=== PATIENT | male | born 1975 | race Caucasian/White ===

== ENCOUNTER 2018-05-07 09:45 | Inpatient (IN) ==
--- NOTE | 2018-05-07 10:20 | ED ---
HPI General Chief Complaint: Psychiatric Symptoms Stated Complaint: Psych eval Time Seen by Provider: 05/07/18 17:10 Source: patient Mode of arrival: ambulatory Limitations: no limitations History of Present Illness HPI Narrative: Patient is a 42-year-old male here today with his father for a history of depression and anxiety. He denies any homicidal ideation, but did come out of the room and let nurse know that he does frequently have suicidal thoughts but does not have a plan. Denies any hallucinations or delusions. He takes paxil 40 mg po daily, which helps some, but his symptoms are not completely controlled. He does not work at this time. Denies any drug or etoh use. MD complaint: Reports suicidal ideation, feels depressed and other (anxiety) Onset (ago): month(s) Duration: intermittent History of same: Yes Relieving factors: medication (Some relief of symptoms) Exacerbating factors: none Context: Denies recent alcohol abuse, recent drug abuse, not taking psychiatric medications and significant life stressor Associated psychiatric symptoms: Reports depression; Denies homicidal ideation, visual hallucinations and delusions Associated symptoms: Reports denies other symptoms Treatments prior to arrival: Reports none If self harm: admits thoughts of self harm Related Data Home Medications Medication Instructions Recorded Confirmed fluoxetine [Prozac] 40 mg PO DAILY 05/07/18 05/07/18 Allergies Allergy/AdvReac Type Severity Reaction Status Date / Time No Known Allergies Allergy Verified 05/07/18 09:50 Review of Systems ROS: all other systems reviewed are negative [facility]LY [facility] Medical History Medical History Depression (Acute) Surgical History Surgical History No history of previous surgery (Acute) Social History Social History Substance History: Past History Second Hand Smoke Exposure: No Smoking Status: Current every day smoker Tobacco Type: Cigarettes How Often Do You Have a Drink Containing Alcohol: 4 or more times a week (10- 12 beers and a bottle of wine daily for the past 7-9 months but excessive drinking since teenage years by patients own admission) Hx Recent Travel: No Recent Travel in [facility] within the Last 8 Weeks: No Recent Out of Country Travel within the Last 8 Weeks: No Immunization History Tetanus Immunization: Unsure Exam Narrative Exam Narrative: GENERAL: Pt awake, alert, oriented, calm, cooperative. SKIN: Focused skin assessment warm/dry. HEAD: Atraumatic. Normocephalic. EYES: Pupils equal and round. No scleral icterus. No injection or drainage. ENT: No nasal bleeding or discharge. Mucous membranes pink and moist. NECK: Trachea midline. No JVD. CARDIOVASCULAR: Regular rate and rhythm. No murmur appreciated. RESPIRATORY: No accessory muscle use. Clear to auscultation. Breath sounds equal bilaterally. GASTROINTESTINAL: Abdomen soft, non-tender, nondistended. Hepatic and splenic margins not palpable. MUSCULOSKELETAL: No obvious deformities. No clubbing. No cyanosis. No edema. NEUROLOGICAL: Awake and alert. No obvious cranial nerve deficits. Motor grossly within normal limits. Normal speech. PSYCHIATRIC: Appropriate mood and affect; insight and judgment normal. Course Initial Documented Vital Signs Temperature 98.3 F 05/07/18 09:48 Pulse Rate 83 05/07/18 09:48 Respiratory Rate 14 05/07/18 09:48 Blood Pressure 143/85 H 05/07/18 09:48 Pulse Oximetry 96 05/07/18 09:48 Last Documented Vital Signs Temperature 97.6 F 05/09/18 06:01 Pulse Rate 75 05/09/18 06:01 Respiratory Rate 16 05/09/18 06:01 Blood Pressure 110/72 05/09/18 06:01 Pulse Oximetry 99 05/09/18 06:01 Medical Decision Making MDM Narrative Medical decision making narrative: Pt here with his father for depression, anxiety, and intermittent suicidal thoughts. He's awake, alert, oriented, and appropriate at this yousuf. Psych screening lab work ordered. Mild decrease in GFR and ALT.urine positive for cannabis use. He is medically cleared for psych evaluation. At approximately 130 patient was made aware that he is going to be discharged home he became very upset and began running around the emergency department. He was subsequently moved to the [facility]. [facility] for psychiatry, is going to attempt to get him admitted to [facility] for evaluation. Medical Screen Exam Complete: Yes Emergency Medical Condition: Yes Differential Diagnosis Differential Diagnosis: Depression, Anxiety, bipolar, suicidal, homicidal Lab Data Lab results reviewed: Yes I reviewed the patient's lab results. Result diagrams: 05/07/18 10:22 05/08/18 14:20 Lab Results 05/07/18 05/07/18 05/07/18 Range/Units 10:22 10:22 10:28 WBC 6.9 (4.0-11.0) th/mm3 RBC 4.91 (4.50-5.90) mil/mm3 Hgb 15.2 (13.0-17.0) gm/dL Hct 45.2 (39.0-51.0) % MCV 92.2 (80.0-100.0) fL MCH 31.0 (27.0-34.0) pg MCHC 33.6 (32.0-36.0) % RDW 12.8 (11.6-17.2) % Plt Count 259 (150-450) th/mm3 MPV 8.1 (7.0-11.0) fL Neut % (Auto) 73.0 H (16.0-70.0) % Lymph % (Auto) 17.9 (9.0-44.0) % Stevens % (Auto) 7.2 (0.0-8.0) % Eos % (Auto) 1.4 (0.0-4.0) % Baso % (Auto) 0.5 (0.0-2.0) % Neut # (Auto) 5.1 (1.8-7.7) th/mm3 Lymph # (Auto) 1.2 (1.0-4.8) th/mm3 Stevens # (Auto) 0.5 (0.0-0.9) th/mm3 Eos # (Auto) 0.1 (0.0-0.4) th/mm3 Baso # (Auto) 0.0 (0.0-0.2) th/mm3 WBC Differential . Differential Comment Auto diff final Sodium 139 (136-145) meq/L Potassium 3.8 (3.5-5.1) meq/L Chloride 107 (98-107) meq/L Carbon Dioxide 23.7 (21.0-32.0) meq/L Anion Gap 8 (5-15) meq/L BUN 14 (7-18) mg/dL Creatinine 0.98 (0.60-1.30) mg/dL Estimated GFR 84 L (>89) mL/min Random Glucose 103 (74-106) mg/dL Hemoglobin A1c (4.3-6.0) % Calcium 9.4 (8.5-10.1) mg/dL Total Bilirubin 0.3 (0.2-1.0) mg/dL AST 14 L (15-37) U/L ALT 39 (12-78) U/L Alkaline Phosphatase 54 (45-117) U/L Total Protein 7.4 (6.4-8.2) g/dL Albumin 4.1 (3.4-5.0) g/dL Triglycerides (42-150) mg/dL Cholesterol (120-200) mg/dL LDL Cholesterol, Calc (0-99) mg/dL HDL Cholesterol (40.0-60.0) mg/dL Cholesterol/HDL Ratio Ratio TSH 0.917 (0.358-3.740) uIU/mL Urine Color (Yellw/Straw) Urine Clarity (Clear) Urine pH (5.0-8.5) Ur Specific [place] (1.002-1.035) Urine Protein (Neg-Trace) mg/dL Urine Glucose (UA) (Negative) mg/dL Urine Ketones (Negative) mg/dL Urine Occult Blood (Negative) Urine Nitrate (Negative) Urine Bilirubin (Negative) Urine Urobilinogen (Less than 2) mg/dL Ur Leukocyte Esterase (Negative) Urine RBC (0-3) /hpf Ur Squamous Epith Cells (0-5) /hpf Urine Bacteria (None) /hpf Hyaline Casts (0-3) /lpf Urine Mucus (Occasional) /lpf Micro UA Comment Ur Microscopic Review Urine Culture Comments Urine Opiates Screen Neg (Neg) Ur Barbiturates Screen Neg (Neg) Ur Amphetamines Screen Neg (Neg) U Benzodiazepines Scrn Neg (Neg) Urine Cocaine Screen Neg (Neg) U Cannabinoids Screen Pos H (Neg) Serum Alcohol Less than 3 (0-5) mg/dL 05/07/18 05/08/18 05/08/18 Range/Units 10:28 14:20 14:20 WBC (4.0-11.0) th/mm3 RBC (4.50-5.90) mil/mm3 Hgb (13.0-17.0) gm/dL Hct (39.0-51.0) % MCV (80.0-100.0) fL MCH (27.0-34.0) pg MCHC (32.0-36.0) % RDW (11.6-17.2) % Plt Count (150-450) th/mm3 MPV (7.0-11.0) fL Neut % (Auto) (16.0-70.0) % Lymph % (Auto) (9.0-44.0) % Stevens % (Auto) (0.0-8.0) % Eos % (Auto) (0.0-4.0) % Baso % (Auto) (0.0-2.0) % Neut # (Auto) (1.8-7.7) th/mm3 Lymph # (Auto) (1.0-4.8) th/mm3 Stevens # (Auto) (0.0-0.9) th/mm3 Eos # (Auto) (0.0-0.4) th/mm3 Baso # (Auto) (0.0-0.2) th/mm3 WBC Differential Differential Comment Sodium 141 (136-145) meq/L Potassium 3.4 L (3.5-5.1) meq/L Chloride 105 (98-107) meq/L Carbon Dioxide 29.6 (21.0-32.0) meq/L Anion Gap 6 (5-15) meq/L BUN 13 (7-18) mg/dL Creatinine 0.98 (0.60-1.30) mg/dL Estimated GFR 84 L (>89) mL/min Random Glucose 105 (74-106) mg/dL Hemoglobin A1c 5.2 (4.3-6.0) % Calcium 9.2 (8.5-10.1) mg/dL Total Bilirubin (0.2-1.0) mg/dL AST (15-37) U/L ALT (12-78) U/L Alkaline Phosphatase (45-117) U/L Total Protein (6.4-8.2) g/dL Albumin (3.4-5.0) g/dL Triglycerides 437 H (42-150) mg/dL Cholesterol 229 H (120-200) mg/dL LDL Cholesterol, Calc (0-99) mg/dL HDL Cholesterol 41.7 (40.0-60.0) mg/dL Cholesterol/HDL Ratio 5.49 Ratio TSH (0.358-3.740) uIU/mL Urine Color Yellow (Yellw/Straw) Urine Clarity Clear (Clear) Urine pH 6.0 (5.0-8.5) Ur Specific [place] 1.006 (1.002-1.035) Urine Protein Negative (Neg-Trace) mg/dL Urine Glucose (UA) Negative (Negative) mg/dL Urine Ketones Negative (Negative) mg/dL Urine Occult Blood Negative (Negative) Urine Nitrate Negative (Negative) Urine Bilirubin Negative (Negative) Urine Urobilinogen Less than 2 (Less than 2) mg/dL Ur Leukocyte Esterase Negative (Negative) Urine RBC Less than 1 (0-3) /hpf Ur Squamous Epith Cells <1 (0-5) /hpf Urine Bacteria Rare H (None) /hpf Hyaline Casts 1 (0-3) /lpf Urine Mucus Moderate H (Occasional) /lpf Micro UA Comment Culture not ind Ur Microscopic Review Not Reportable Urine Culture Comments Culture not ind Urine Opiates Screen (Neg) Ur Barbiturates Screen (Neg) Ur Amphetamines Screen (Neg) U Benzodiazepines Scrn (Neg) Urine Cocaine Screen (Neg) U Cannabinoids Screen (Neg) Serum Alcohol (0-5) mg/dL Discharge Plan Discharge Disposition Patient Disposition: 70 Transfer To Other Facility Discharge Condition Condition: Stable Discharge Order Discharge Orders: Discharge Order (Routine); Ordered 05/09/18 Ordered By: Hermila Toledo Physicians Team ED Provider: Jeremiah Robbins ED Midlevel Provider: Hermila Toledo Primary Care Provider: Primary Care Maura Mendes Attending Provider: Tony Fernandez Discharge Interventions Interventions: ED Discharge Assessment Last Done: 05/08/18 10:29 Status ED Status: Left Department Discharge Information Discharge Date/Time: 05/08/18 11:00
[2018-05-07 10:30] LABS: Baso % (Auto) 0.5 % (0.0-2.0); Eos # (Auto) 0.1 th/mm3 (0.0-0.4); Eos % (Auto) 1.4 % (0.0-4.0); Hematocrit 45.2 % (39.0-51.0); Hemoglobin 15.2 gm/dL (13.0-17.0); Lymph # (Auto) 1.2 th/mm3 (1.0-4.8); Lymph % (Auto) 17.9 % (9.0-44.0); Mean Corpuscular HGB Conc 33.6 % (32.0-36.0); Mean Corpuscular Volume 92.2 fL (80.0-100.0); Mean Platelet Volume 8.1 fL (7.0-11.0); Mono # (Auto) 0.5 th/mm3 (0.0-0.9); Mono % (Auto) 7.2 % (0.0-8.0); Neut # (Auto) 5.1 th/mm3 (1.8-7.7); Platelet Count 259 th/mm3 (150-450); Red Blood Count 4.91 mil/mm3 (4.50-5.90); Red Cell Distribution Width 12.8 % (11.6-17.2); White Blood Count 6.9 th/mm3 (4.0-11.0)
[2018-05-07 10:47] LABS: Albumin 4.1 g/dL (3.4-5.0); Anion Gap 8 meq/L (5-15); Aspartate Aminotransferase 14 U/L (15-37); Blood Urea Nitrogen 14 mg/dL (7-18); Calcium 9.4 mg/dL (8.5-10.1); Carbon Dioxide 23.7 meq/L (21.0-32.0); Chloride 107 meq/L (98-107); Glomerular Filtration Rate 84 mL/min (>89); Glucose,Random 103 mg/dL (74-106); Potassium 3.8 meq/L (3.5-5.1); Sodium 139 meq/L (136-145)
[2018-05-07 10:49] LABS: Alanine Aminotransferase 39 U/L (12-78)
[2018-05-07 10:56] LABS: Bacteria,Urine Rare /hpf; Bilirubin,Urine Negative (Negative); Clarity,Urine Clear (Clear); Color,Urine Yellow (Yellw/Straw); Glucose,Urine (UA) Negative (Negative); Hyaline Casts,Urine 1 /lpf (0-3); Leukocyte Esterase,Urine Negative (Negative); Mucus,Urine Moderate /lpf (Occasional); Nitrite,Urine Negative (Negative); Specific Gravity,Urine 1.006 (1.002-1.035); Squamous Epithelial Cell,Urine <1 /hpf (0-5)
[2018-05-07 10:58] LABS: Alkaline Phosphatase 54 U/L (45-117); Thyroid Stimulating Hormone 0.917 uIU/mL (0.358-3.740); Total Protein 7.4 g/dL (6.4-8.2)
[2018-05-07 11:04] LABS: Amphetamine Screen,Urine Neg (Neg); Barbiturate Screen,Urine Neg (Neg); Cannabinoid Screen,Urine Pos (Neg); Cocaine Screen,Urine Neg (Neg)
[2018-05-07 11:08] LABS: Opiate Screen,Urine Neg (Neg)
--- NOTE | 2018-05-07 19:40 | ED ---
HPI - Psych - General Source: patient, family Mode of arrival: ambulatory Limitations: no limitations - History of Present Illness MD complaint: suicidal ideation, feels depressed Onset (ago): day(s) Duration: intermittent History of same: Yes Relieving factors: none, medication (Some relief of symptoms) Exacerbating factors: none Context: significant life stressor Associated psychiatric symptoms: depression Associated symptoms: denies other symptoms Treatments prior to arrival: none - General Chief Complaint: Psychiatric Symptoms Stated Complaint: Psych eval Time Seen by Provider: 05/07/18 17:10 - History of Present Illness HPI Narrative: History of Present Illness HPI Narrative: Patient is a 42-year-old, single, unemployed male, with reported history of depression and anxiety, here today with his father on a voluntary status with chief complaint of depression and suicidal ideation. The patient denied any homicidal ideation at her but it is reported he did come out of the room and let the nurse noted that he does have frequent suicidal thoughts with no plan. EMR reviewed. No previous contact with [facility] psychiatry. Patient is seen. He is resting comfortably. He is alert and oriented. Speech is clear, logical, of normal rate and tone. The patient provides a rather vague and confusing history of multiple recent admissions to [facility] as recent as February [id number]. He was they are under a [place] act for suicidal ideation. He then states he was there a couple of weeks and returned to that facility. He was discharged from a facility in [place] 4 days ago as per his father's report. He is currently on Prozac 40 mg and has been taken Prozac for the last 2 weeks. He continues to report feeling depressed, difficulty falling asleep and frequent awakening, decreased appetite, and feeling like "he has no thoughts"the patient does not appear internally preoccupied and denies any hallucinations. He reports that he continues to have suicidal thoughts with a plan of buying a tent and going into the [place] in [place] and dehydrating. He states "I also have thought about hanging". The patient is requesting inpatient psychiatric treatment of an extended amount of time as he believes that he has not been adequately treated at his previous admissions. In terms of psychiatric history. He denies any previous suicide attempts. He reports that he has been diagnosed as having depression since he was a teenager and that he has been in and out of treatment. He has been treated on an outpatient basis by [facility] for several years and was prescribed Prozac and Adderall. In terms of substance abuse he reports that he had been on a drinking binge for the past 9 months and stopped 2 weeks ago. He denies that he experienced any symptoms of withdrawal, no seizures and no DTs. He denied any other substance use although his toxicology is positive " high" for cannabinoids. Social history. Single. 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 He is currently staying with his father here in [facility] although he lives in [place]. The patient gives me verbal permission to contact his father Hayden and I have done so at [phone]. The father tells me that the patient has been staying with him for the past 12 days and it that it has been "a constant one-on-one" He goes on to state that he has been in and out of several facilities and that he has trouble with depression and anxiety. He also reports the patient was in a rehabilitation center 10 years ago for his use of substances. . ([facility]olis Alcantar) - Related Data Home Medications Medication Instructions Recorded Confirmed fluoxetine [Prozac] 40 mg PO DAILY 05/07/18 05/07/18 Allergies Allergy/AdvReac Type Severity Reaction Status Date / Time No Known Allergies Allergy Verified 05/07/18 09:50 FORMERLY [facility] - History History Provided By: Patient - Medical History Medical History: Medical History (Last Updated 05/07/18 @ 10:04 by Nataly Valente RN) Depression - Surgical History Surgical History: Surgical History (Last Updated 05/07/18 @ 10:04 by Nataly Valente RN) No history of previous surgery - Social History I have reviewed the patient's Social History: Yes - Tobacco History Second Hand Smoke Exposure: Yes Tobacco Use In Past 30 Days: Yes Smoking Status: Light tobacco smoker Tobacco Type: Cigarettes - Alcohol History How Often Do You Have a Drink Containing Alcohol: 4 or more times a week - Substance Use History Substance History: No History of Abuse - Travel History Recent Travel in the [facility] Within the Last 8 Weeks: No Recent Travel Out of the Country Within the Last 8 Weeks: No - Immunization History Tetanus Immunization: Unsure Psychiatric History - Psychiatric History Psychiatric Treatment History: History of Psychiatric Treatment History of Inpatient Treatment: Yes ([facility]) Firearms in Home: No - Family Psychiatric History None reported ([facility] Alcantar) Physical Exam - General Limitations: no limitations Mental Status Examination Consciousness: Alert Orientation: x4 Motor Activity: Normal gait Speech: Unremarkable Language: Adequate Fund of Knowledge: Adequate Attention and Concentration: Adequate Memory: Unremarkable Mood: Sad Affect: Appropriate Thought Process & Associations: Intact, Logical, Goal directed Thought Content: Appropriate Hallucination Type: None Delusion Type: None Suicidal Ideation: Yes Suicidal Plan: Yes Suicidal Intention: No Homicidal Ideation: No Homicidal Plan: No Homicidal Intention: No Insight: Fair Judgment: Adequate Initial Documented Vital Signs Temperature 98.3 F 05/07/18 09:48 Pulse Rate 83 05/07/18 09:48 Respiratory Rate 14 05/07/18 09:48 Blood Pressure 143/85 H 05/07/18 09:48 Pulse Oximetry 96 05/07/18 09:48 Last Documented Vital Signs Temperature 98.3 F 05/07/18 09:48 Pulse Rate 69 05/07/18 18:17 Respiratory Rate 16 05/07/18 14:07 Blood Pressure 134/86 05/07/18 18:17 Pulse Oximetry 97 05/07/18 18:17 MDM - Psych - Diagnosis (1) Adjustment disorder with depressed mood Status: Acute (2) Substance induced mood disorder Status: Acute (3) Cannabis abuse Status: Acute - Lab Data Result diagrams: 05/07/18 10:22 05/07/18 10:22 - [facility] Narrative Medical decision making narrative: At this time the patient is quite insistent on being psychiatrically admitted for extended period of time. He has had several admissions to inpatient psychiatry in the last several weeks with her no benefit. I recommend that the patient be presented to the [facility] where he can receive treatment for both his substance as well as his mental health. I believe that his use of alcohol and other substances certainly impact his current presentation. Staff will present him to the [facility] for admission to dual treatment center. I have informed the father of this as well as the patient. ([facility]olis Alcantar) - Lab Data Lab Results 05/07/18 05/07/18 05/07/18 Range/Units 10:22 10:22 10:28 WBC 6.9 (4.0-11.0) th/mm3 RBC 4.91 (4.50-5.90) mil/mm3 Hgb 15.2 (13.0-17.0) gm/dL Hct 45.2 (39.0-51.0) % MCV 92.2 (80.0-100.0) fL MCH 31.0 (27.0-34.0) pg MCHC 33.6 (32.0-36.0) % RDW 12.8 (11.6-17.2) % Plt Count 259 (150-450) th/mm3 MPV 8.1 (7.0-11.0) fL Neut % (Auto) 73.0 H (16.0-70.0) % Lymph % (Auto) 17.9 (9.0-44.0) % [place] % (Auto) 7.2 (0.0-8.0) % Eos % (Auto) 1.4 (0.0-4.0) % Baso % (Auto) 0.5 (0.0-2.0) % Neut # (Auto) 5.1 (1.8-7.7) th/mm3 Lymph # (Auto) 1.2 (1.0-4.8) th/mm3 [place] # (Auto) 0.5 (0.0-0.9) th/mm3 Eos # (Auto) 0.1 (0.0-0.4) th/mm3 Baso # (Auto) 0.0 (0.0-0.2) th/mm3 WBC Differential . Differential Comment Auto diff final Sodium 139 (136-145) meq/L Potassium 3.8 (3.5-5.1) meq/L Chloride 107 (98-107) meq/L Carbon Dioxide 23.7 (21.0-32.0) meq/L Anion Gap 8 (5-15) meq/L BUN 14 (7-18) mg/dL Creatinine 0.98 (0.60-1.30) mg/dL Estimated GFR 84 L (>89) mL/min Random Glucose 103 (74-106) mg/dL Calcium 9.4 (8.5-10.1) mg/dL Total Bilirubin 0.3 (0.2-1.0) mg/dL AST 14 L (15-37) U/L ALT 39 (12-78) U/L Alkaline Phosphatase 54 (45-117) U/L Total Protein 7.4 (6.4-8.2) g/dL Albumin 4.1 (3.4-5.0) g/dL TSH 0.917 (0.358-3.740) uIU/mL Urine Color (Yellw/Straw) Urine Clarity (Clear) Urine pH (5.0-8.5) Ur Specific [place] (1.002-1.035) Urine Protein (Neg-Trace) mg/dL Urine Glucose (UA) (Negative) mg/dL Urine Ketones (Negative) mg/dL Urine Occult Blood (Negative) Urine Nitrate (Negative) Urine Bilirubin (Negative) Urine Urobilinogen (Less than 2) mg/dL Ur Leukocyte Esterase (Negative) Urine RBC (0-3) /hpf Ur Squamous Epith Cells (0-5) /hpf Urine Bacteria (None) /hpf Hyaline Casts (0-3) /lpf Urine Mucus (Occasional) /lpf Micro UA Comment Ur Microscopic Review Urine Culture Comments Urine Opiates Screen Neg (Neg) Ur Barbiturates Screen Neg (Neg) Ur Amphetamines Screen Neg (Neg) U Benzodiazepines Scrn Neg (Neg) Urine Cocaine Screen Neg (Neg) U Cannabinoids Screen Pos H (Neg) Serum Alcohol Less than 3 (0-5) mg/dL 18 Range/Units 10:28 WBC (4.0-11.0) th/mm3 RBC (4.50-5.90) mil/mm3 Hgb (13.0-17.0) gm/dL Hct (39.0-51.0) % MCV (80.0-100.0) fL MCH (27.0-34.0) pg MCHC (32.0-36.0) % RDW (11.6-17.2) % Plt Count (150-450) th/mm3 MPV (7.0-11.0) fL Neut % (Auto) (16.0-70.0) % Lymph % (Auto) (9.0-44.0) % [place] % (Auto) (0.0-8.0) % Eos % (Auto) (0.0-4.0) % Baso % (Auto) (0.0-2.0) % Neut # (Auto) (1.8-7.7) th/mm3 Lymph # (Auto) (1.0-4.8) th/mm3 [place] # (Auto) (0.0-0.9) th/mm3 Eos # (Auto) (0.0-0.4) th/mm3 Baso # (Auto) (0.0-0.2) th/mm3 WBC Differential Differential Comment Sodium (136-145) meq/L Potassium (3.5-5.1) meq/L Chloride (98-107) meq/L Carbon Dioxide (21.0-32.0) meq/L Anion Gap (5-15) meq/L BUN (7-18) mg/dL Creatinine (0.60-1.30) mg/dL Estimated GFR (>89) mL/min Random Glucose (74-106) mg/dL Calcium (8.5-10.1) mg/dL Total Bilirubin (0.2-1.0) mg/dL AST (15-37) U/L ALT (12-78) U/L Alkaline Phosphatase (45-117) U/L Total Protein (6.4-8.2) g/dL Albumin (3.4-5.0) g/dL TSH (0.358-3.740) uIU/mL Urine Color Yellow (Yellw/Straw) Urine Clarity Clear (Clear) Urine pH 6.0 (5.0-8.5) Ur Specific [place] 1.006 (1.002-1.035) Urine Protein Negative (Neg-Trace) mg/dL Urine Glucose (UA) Negative (Negative) mg/dL Urine Ketones Negative (Negative) mg/dL Urine Occult Blood Negative (Negative) Urine Nitrate Negative (Negative) Urine Bilirubin Negative (Negative) Urine Urobilinogen Less than 2 (Less than 2) mg/dL Ur Leukocyte Esterase Negative (Negative) Urine RBC Less than 1 (0-3) /hpf Ur Squamous Epith Cells <1 (0-5) /hpf Urine Bacteria Rare H (None) /hpf Hyaline Casts 1 (0-3) /lpf Urine Mucus Moderate H (Occasional) /lpf Micro UA Comment Culture not ind Ur Microscopic Review Not Reportable Urine Culture Comments Culture not ind Urine Opiates Screen (Neg) Ur Barbiturates Screen (Neg) Ur Amphetamines Screen (Neg) U Benzodiazepines Scrn (Neg) Urine Cocaine Screen (Neg) U Cannabinoids Screen (Neg) Serum Alcohol (0-5) mg/dL
[2018-05-08] MEDS ORDERED: Aluminum/Magnesium/Simethacone Susp 30 ML UDC PO PRN (13:33)
[2018-05-08] MEDS ORDERED: Acetaminophen 325 MG Tablet PO PRN (13:33)
[2018-05-08 15:37] LABS: Calcium 9.2 mg/dL (8.5-10.1); Carbon Dioxide 29.6 meq/L (21.0-32.0); Potassium 3.4 meq/L (3.5-5.1)
[2018-05-08 15:40] LABS: Chol/HDL Ratio 5.49 Ratio; HDL Cholesterol 41.7 mg/dL (40.0-60.0)
[2018-05-08 18:14] LABS: Hemoglobin A1c 5.2 % (4.3-6.0)
[2018-05-09] MEDS ORDERED: Haloperidol Inj 5 MG/ML Ampul IV.PUSH PRN (11:22)
[2018-05-09] MEDS ORDERED: LORazepam 1 MG Tablet PO PRN (11:22)
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
[2018-05-09] MEDS: FLUoxetine 20 MG Capsule PO SCH (16:07)
[2018-05-09] MEDS ORDERED: Zolpidem Tartrate 5 MG Tablet PO SCH (21:00)
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
[2018-05-10] MEDS: FLUoxetine 20 MG Capsule PO SCH (13:56)
--- NOTE | 2018-05-10 15:13 | P.PNPSY ---
Subjective Chief Complaint: "Pretty down" / "I'm so alone" Remarks: Patient seen for follow-up, chart reviewed. Discussion with nursing staff reported that patient slept, head CT was negative for any acute findings. Patient was found lying hospital bed noted B, cooperative. Patient states that he did not sleep too well despite nursing report stated the opposite. Patient stated his mood is "low" stating that he had found in day room for some time but is not attending groups. Patient continues to endorse suicide ideations content report feeling depressed but denying any perceptional disturbances. Collateral history obtained by patient's father Franck Stafford, [phone] who states that his son has been dealing with alcohol use for years. He states that his son was in [facility] the inpatient unit at [facility] on 2 separate occasions. Patient states the patient cycles through this pattern for years has a history of polysubstance use and wanting patient to engage in sober living facility or inpatient rehabilitation program upon discharge and stabilization. Collateral contact: Karen Milian (mother) [phone] Review of Systems All other systems reviewed negative except as stated in HPI Mental Status Examination Appearance: Appropriate Consciousness: Alert Orientation: x4 Motor Activity: Normal gait Speech: Unremarkable Language: Adequate Fund of Knowledge: Inadequate Attention and Concentration: Adequate Memory: Unremarkable Mood: Sad Affect: Sad Thought Process & Associations: Intact, Goal directed Thought Content: Appropriate Hallucination Type: None Delusion Type: None Suicidal Ideation: Yes Suicidal Plan: No Suicidal Intention: No Homicidal Ideation: No Homicidal Plan: No Homicidal Intention: No Insight: Fair Judgment: Adequate Assessment and Plan - Assessment (1) Major depressive disorder Code(s): F32.9 - Major depressive disorder, single episode, unspecified Status : Acute (2) Alcohol abuse Code(s): F10.10 - Alcohol abuse, uncomplicated Status: Acute (3) Cannabis abuse Code(s): F12.10 - Cannabis abuse, uncomplicated Status: Acute - Plan Plan: Patient to continue current treatment we will increase zolpidem to 10 mg p.o. at bedtime for sleep disturbance. Patient continues to have limited response to Prozac 40 mg p.o. daily we will consider adding olanzapine as an adjunct. Continue rest of medications continue to monitor mood and behavior. Continue to encourage patient to participate in groups and activities on the unit. Discharge planning in progress. Justification for Continued Inpatient Stay: At risk of further decompensation at lower level care. Request Healthcare Surrogate/Guardian Advocate?: No (1) Major depressive disorder Qualifiers: Major depression recurrence: recurrent Active/Remission status: currently active Major depression episode severity: severe Psychotic features: without psychotic features Qualified Code(s): F33.2 - Major depressive disorder, recurrent severe without psychotic features
[2018-05-11] MEDS: FLUoxetine 20 MG Capsule PO SCH (09:42)
--- NOTE | 2018-05-11 13:04 | P.PNPSY ---
Subjective Chief Complaint: depressed Remarks: Pt seen and discussed with staff. Chart reviewed. He has been isolative and irritable today on unit and has refused to attend unit activities. He remains depressed with poor sleep. He denies SI/HI today. Mental Status Examination Appearance: Appropriate Consciousness: Alert Orientation: x4 Motor Activity: Normal gait Speech: Unremarkable Language: Adequate Fund of Knowledge: Inadequate Attention and Concentration: Adequate Memory: Unremarkable Mood: Sad Affect: Sad Thought Process & Associations: Intact, Goal directed Thought Content: Appropriate Hallucination Type: None Delusion Type: None Suicidal Ideation: No (denies today) Suicidal Plan: No Suicidal Intention: No Homicidal Ideation: No Homicidal Plan: No Homicidal Intention: No Insight: Fair Judgment: Adequate Assessment and Plan - Assessment (1) Major depressive disorder Code(s): F32.9 - Major depressive disorder, single episode, unspecified Status : Acute (2) Alcohol abuse Code(s): F10.10 - Alcohol abuse, uncomplicated Status: Acute (3) Cannabis abuse Code(s): F12.10 - Cannabis abuse, uncomplicated Status: Acute - Plan Plan: Continue current tx plan. Justification for Continued Inpatient Stay: imparimetns in occupational functioning Request Healthcare Surrogate/Guardian Advocate?: No (1) Major depressive disorder Qualifiers: Major depression recurrence: recurrent Active/Remission status: currently active Major depression episode severity: severe Psychotic features: without psychotic features Qualified Code(s): F33.2 - Major depressive disorder, recurrent severe without psychotic features
[2018-05-12] MEDS: FLUoxetine 20 MG Capsule PO SCH (09:25)
--- NOTE | 2018-05-12 13:10 | P.PNPSY ---
Subjective Chief Complaint: depressed Remarks: Chart reviewed and discussed with nursing staff. Patient discussed increasing his Prozac from 40 mg to [address] Rivas yesterday. Today he states that he has been on Prozac for a long time and would like to keep the Prozac at 40 mg and add a second medication. Will start patient on Buprorion XL 150 mg daily. He states he is sleeping and eating well. He feels he needs something for his depressed mood. Review of Systems All other systems reviewed negative except as stated in HPI Mental Status Examination Appearance: Appropriate Consciousness: Alert Orientation: x4 Motor Activity: Normal gait Speech: Unremarkable Language: Adequate Fund of Knowledge: Inadequate Attention and Concentration: Adequate Memory: Unremarkable Mood: Sad Affect: Sad Thought Process & Associations: Intact, Goal directed Thought Content: Appropriate Hallucination Type: None Delusion Type: None Suicidal Ideation: No (denies today) Suicidal Plan: No Suicidal Intention: No Homicidal Ideation: No Homicidal Plan: No Homicidal Intention: No Insight: Fair Judgment: Adequate Assessment and Plan - Assessment (1) Cannabis abuse Code(s): F12.10 - Cannabis abuse, uncomplicated Status: Acute (2) Major depressive disorder Code(s): F32.9 - Major depressive disorder, single episode, unspecified Status : Acute (3) Alcohol abuse Code(s): F10.10 - Alcohol abuse, uncomplicated Status: Acute - Plan Plan: Continue current tx plan. Justification for Continued Inpatient Stay: Moving patient to a less restrictive environment may result in his decompensation. Request Healthcare Surrogate/Guardian Advocate?: No (2) Major depressive disorder Qualifiers: Major depression recurrence: recurrent Active/Remission status: currently active Major depression episode severity: severe Psychotic features: without psychotic features Qualified Code(s): F33.2 - Major depressive disorder, recurrent severe without psychotic features
[2018-05-12] MEDS: buPROPion 150 MG XL 24 HR Tablet PO SCH (18:51)
[2018-05-13] MEDS: FLUoxetine 20 MG Capsule PO SCH ×3 (08:36→14:14)
[2018-05-13] MEDS: buPROPion 150 MG XL 24 HR Tablet PO SCH (08:36)
--- NOTE | 2018-05-13 11:55 | P.TTN ---
- Patient Problems Problems: 1. Discharge planning 2. Medication compliance 3. Knowledge deficit 4. Lack of coping skills - Progress Toward Goals Provider Present: Dr. Gladis Fernandez Provider Input: 05/13/18: Dual Diagnosis Inpatient rehab recommended, Added another anti-depressant over the weekend. Nurse(s) Present: Rosibel Nurse Input: 05/13/18: Sleeps well, Sometimes will select certain medications that he chooses to take. Patient stated that hw skeeps well. Psychiatric Counselors Present: Leon Quigley Jr., [facility], Carolin Saleh, [facility] Psychiatric Therapist Input: 05/13/18: Depressed, unable to tolerate the group sessions, isolates to self. Motivated for treatment. Group Spec/RT/OT/SMITH Present: UMESH Veras, Renan Brennan, OT Group Spec/RT/OT/SMITH Input: 05/13/18: Isolates to his room, although encouraged to participate in the group activities the patient declines. - Discharge Plan 05/13/18: Counselor will discuss with the Patient entering a Dual Diagnoses facility. Pt remains depressed and isolates to his room. - Documentation Scribe: Katey CALVO Teaching Recipient: Patient
--- NOTE | 2018-05-13 17:14 | P.PNPSY ---
Subjective Chief Complaint: depressed Remarks: Patient seen for follow-up, chart reviewed. Discussion with nursing staff reported that patient continues to feel depressed and hopeless. Patient was found sitting in day room noted to be calm and cooperative. Patient state he is feeling "bad" stating that he states not feeling any relief continues to be stressed about having lost his job, having a place to live. He states that he feels that inside and feels hopeless. Patient denying any active thoughts of wanting to end his life but states that he feels being stuck. He states that his mother is looking for a dual diagnosis facility to assist with his recovery. Discussion of importance of treating both substance use issues as well as his depression are important for his recovery. Patient agrees to continue treatment and participate actively in groups and activities. Review of Systems All other systems reviewed negative except as stated in HPI Mental Status Examination Appearance: Appropriate Consciousness: Alert Orientation: x4 Motor Activity: Normal gait Speech: Unremarkable Language: Adequate Fund of Knowledge: Inadequate Attention and Concentration: Adequate Memory: Unremarkable Mood: Sad Affect: Sad Thought Process & Associations: Intact, Goal directed Thought Content: Appropriate Hallucination Type: None Delusion Type: None Suicidal Ideation: No (denies today) Suicidal Plan: No Suicidal Intention: No Homicidal Ideation: No Homicidal Plan: No Homicidal Intention: No Insight: Fair Judgment: Adequate Assessment and Plan - Assessment (1) Major depressive disorder Code(s): F32.9 - Major depressive disorder, single episode, unspecified Status : Acute (2) Alcohol abuse Code(s): F10.10 - Alcohol abuse, uncomplicated Status: Acute (3) Cannabis abuse Code(s): F12.10 - Cannabis abuse, uncomplicated Status: Acute - Plan Plan: Patient this time continues with depressed mood,, continues with hopelessness but denying any active suicide ideations. Patient noted with poor motivation and requires encouragement to participate in groups and activities. We will continue current treatment as patient was recently started on bupropion yesterday and will titrate accordingly. We will continue to monitor mood and behavior. Discharge planning in progress. Justification for Continued Inpatient Stay: At risk of further decompensation at lower level care. Request Healthcare Surrogate/Guardian Advocate?: No (1) Major depressive disorder Qualifiers: Major depression recurrence: recurrent Active/Remission status: currently active Major depression episode severity: severe Psychotic features: without psychotic features Qualified Code(s): F33.2 - Major depressive disorder, recurrent severe without psychotic features
[2018-05-14] MEDS: FLUoxetine 20 MG Capsule PO SCH (08:36)
[2018-05-14] MEDS: buPROPion 150 MG XL 24 HR Tablet PO SCH (08:36)
--- NOTE | 2018-05-14 16:22 | P.PNPSY ---
Subjective Chief Complaint: depressed Remarks: Patient seen for follow-up, chart reviewed. Discussion with nursing staff reported that patient patient slept last night, noted to be smiling more with improved affect and compliant with medications. Patient was found sitting in day room noted B, cooperative. Patient states that he feels "stuck, hopeless" but denying any suicide ideations at this time. Patient reports having slept better last evening, eating and drinking without difficulty or bowel movement. Patient denies any physical complaints at this time. Patient continues report feeling "foggy" stating feeling confused and lost in what to do as patient currently worried about homelessness and unemployment at this time. Patient was reminded of focusing on participation in his recovery from depression continue adherence to treatment and participating in groups and activities while on the unit all treatment team attempted to arrange for appropriate discharge planning and referral to an inpatient rehabilitation program or sober living facility. Review of Systems All other systems reviewed negative except as stated in HPI Mental Status Examination Appearance: Appropriate Consciousness: Alert Orientation: x4 Motor Activity: Normal gait Speech: Unremarkable Language: Adequate Fund of Knowledge: Inadequate Attention and Concentration: Adequate Memory: Unremarkable Mood: Sad Affect: Sad Thought Process & Associations: Intact, Goal directed Thought Content: Appropriate Hallucination Type: None Delusion Type: None Suicidal Ideation: No (denies today) Suicidal Plan: No Suicidal Intention: No Homicidal Ideation: No Homicidal Plan: No Homicidal Intention: No Insight: Fair Judgment: Adequate Assessment and Plan - Assessment (1) Major depressive disorder Code(s): F32.9 - Major depressive disorder, single episode, unspecified Status : Acute (2) Alcohol abuse Code(s): F10.10 - Alcohol abuse, uncomplicated Status: Acute (3) Cannabis abuse Code(s): F12.10 - Cannabis abuse, uncomplicated Status: Acute - Plan Plan: Patient continues with depressed mood continues with hopelessness and poor motivation but appears to be attempting to start attending some groups and tolerating medications well. We will continue current treatment. We will continue to encourage patient to be dyspnea groups and activities. Patient denies any suicide ideation at this time. Patient will require referral to a substance rehabilitation program upon discharge. Justification for Continued Inpatient Stay: At risk of further decompensation at lower level care. Request Healthcare Surrogate/Guardian Advocate?: No (1) Major depressive disorder Qualifiers: Major depression recurrence: recurrent Active/Remission status: currently active Major depression episode severity: severe Psychotic features: without psychotic features Qualified Code(s): F33.2 - Major depressive disorder, recurrent severe without psychotic features
[2018-05-15 05:45] VITALS: O2SAT 99
[2018-05-15] MEDS: buPROPion 150 MG XL 24 HR Tablet PO SCH (08:40)
[2018-05-15] MEDS: FLUoxetine 20 MG Capsule PO SCH (08:40)
--- NOTE | 2018-05-15 15:29 | P.TTN ---
- Patient Problems Problems: 1. Discharge planning 2. Medication compliance 3. Knowledge deficit 4. Lack of coping skills - Progress Toward Goals Provider Present: Dr. Gladis Fernandez Provider Input: 05/15/18: Did not get a chance to call the pt's father. Leon was working on getting him to inpatient program for serious alcohol use disorder. 05/13/18: Dual Diagnosis Inpatient rehab recommended, Added another anti-depressant over the weekend. Nurse(s) Present: Madeline Nurse Input: 05/15: Pt complained that his prozac is too sedating and wants it decreased. He asked for cocaine and told me not to tell anyone. He was not happy about doctor's offer to transport to rehab and became argumentative, demanding, and agitated. 05/13/18: Sleeps well, Sometimes will select certain medications that he chooses to take. Patient stated that hw skeeps well. Psychiatric Counselors Present: Carolin Saleh [facility] Psychiatric Therapist Input: 05/13/18: Depressed, unable to tolerate the group sessions, isolates to self. Motivated for treatment. Group Spec/RT/OT/SMITH Present: SARAH Springer Group Spec/RT/OT/SMITH Input: 05/15: Pt attends select groups with minimum participation. He is seclusive to self. 05/13/18: Isolates to his room, although encouraged to participate in the group activities the patient declines. Clinical Coordinator: Sanaz Lee [facility] Clinical Coordinator Input: 05/15: DC pt to father's home tomorrow then to rehab facility - Discharge Plan Other 05/15: DC pt to father's home then follow up to inpatient rehab for alcohol use disorder 05/13/18: Counselor will discuss with the Patient entering a Dual Diagnoses facility. Pt remains depressed and isolates to his room. - Documentation Scribe: Katey Tellez [employer] Teaching Recipient: Patient
--- NOTE | 2018-05-15 22:01 | P.PNPSY ---
Subjective Chief Complaint: depressed Remarks: Patient seen for follow-up, chart reviewed. Discussion with nursing staff reported that patient visible on the unit, off her meals but not participating in groups. Patient was found in day room noted B, cooperative. Patient stated he is feeling "the same" continues to feel depressed but denying any suicide ideations and feeling now more hopeful due to possibility of going to rehabilitation program. Patient states that on medications he feels "drugged" and states that prior admission he would simply just use marijuana and alcohol and feel "happy". He mentions that his mother had found a rehabilitation program which he is agreeable to and will be discharged to this facility tomorrow. Review of Systems All other systems reviewed negative except as stated in HPI Mental Status Examination Appearance: Appropriate Consciousness: Alert Orientation: x4 Motor Activity: Normal gait Speech: Unremarkable Language: Adequate Fund of Knowledge: Inadequate Attention and Concentration: Adequate Memory: Unremarkable Mood: Anxious Affect: Blunt Thought Process & Associations: Intact, Goal directed Thought Content: Appropriate Hallucination Type: None Delusion Type: None Suicidal Ideation: No Suicidal Plan: No Suicidal Intention: No Homicidal Ideation: No Homicidal Plan: No Homicidal Intention: No Insight: Fair Judgment: Adequate Assessment and Plan - Assessment (1) Major depressive disorder Code(s): F32.9 - Major depressive disorder, single episode, unspecified Status : Acute (2) Alcohol abuse Code(s): F10.10 - Alcohol abuse, uncomplicated Status: Acute (3) Cannabis abuse Code(s): F12.10 - Cannabis abuse, uncomplicated Status: Acute - Plan Plan: Patient continues to have depressed mood but states that he is more hopeful denying any suicide ideations at agreeable to referral to rehabilitation program tomorrow upon discharge. Continue current treatment. Continue to monitor mood and behavior. Discharge planning in progress. Justification for Continued Inpatient Stay: At risk of further decompensation at lower level care. Request Healthcare Surrogate/Guardian Advocate?: No (1) Major depressive disorder Qualifiers: Major depression recurrence: recurrent Active/Remission status: currently active Major depression episode severity: severe Psychotic features: without psychotic features Qualified Code(s): F33.2 - Major depressive disorder, recurrent severe without psychotic features
[2018-05-16 05:26] VITALS: BP 112/70; PULSE 70; RESP 16; TEMP 98.1
[2018-05-16] MEDS: FLUoxetine 20 MG Capsule PO SCH (08:08)
[2018-05-16] MEDS: buPROPion 150 MG XL 24 HR Tablet PO SCH (08:08)
--- NOTE | 2018-05-16 12:34 | P.DSPSY ---
Psychiatry Discharge Summary Inpatient Psychiatric care?: Yes Advance Directives: No Mental Health Advance Directive: No Health Care Proxy: No - Admission Admission Date: May 08, 2018 10:31 - Admission Diagnosis (1) Adjustment disorder with depressed mood Code(s): F43.21 - Adjustment disorder with depressed mood (2) Alcohol abuse Code(s): F10.10 - Alcohol abuse, uncomplicated (3) Cannabis abuse Code(s): F12.10 - Cannabis abuse, uncomplicated Brief History: Patient seen with medical student, documentation reviewed. Patient is a 42-year-old man single, unemployed, domiciled with father , with a past psychiatric history of depression, 2 previous psychiatric admissions, last being 2 weeks ago at [facility] with a duration of 5 days, denies any previous suicide attempt or self-injurious behavior with a substance use history of marijuana use and daily alcohol use which patient presented to the ED with his father due to worsening depression and anxiety along with suicidal ideation which patient was admitted to the inpatient psychiatry unit for further evaluation and management. History as stated above, written by medical student. Patient with multiple psychosocial stressors which include recent loss unemployed, girlfriend having left him, ongoing alcohol and marijuana use disorder and recently worsening depressive symptoms which include poor sleep decrease in energy and concentration but no change in appetite along with decreased pleasure in activities with no feelings of guilt but reports feeling depressed, helpless and hopeless along with suicide ideation. He also mentions having a decreased interest in maintaining personal hygiene as well. Rest of history as stated above Tobacco Use In Past 30 Days: Yes How Often Do You Have a Drink Containing Alcohol: 4 or more times a week (10-12 beers and a bottle of wine daily for the past 7-9 months but excessive drinking since teenage years by patients own admission) Hospital Course: Patient is a 42-year-old man single, unemployed, domiciled with father , with a past psychiatric history of depression, 2 previous psychiatric admissions, last being 2 weeks ago at [facility] with a duration of 5 days, denies any previous suicide attempt or self-injurious behavior with a substance use history of marijuana use and daily alcohol use which patient presented to the ED with his father due to worsening depression and anxiety along with suicidal ideation which patient was admitted to the inpatient psychiatry unit for further evaluation and management. Patient was admitted to a locked, inpatient psychiatric unit. Appropriate precautions were in place throughout patient's hospital stay. Patient was seen and examined on the unit by psychiatry. Psychotropic medications were adjusted. There was no further evidence of any suicidality or homicidality on the inpatient unit. Patient's mood improved with the benefit of psychopharmacological treatment and had no behavioral disturbance since admission. Patient was noted to have participated in ADLs, appropriate interaction with staff and peers, noted to participate and engage in treatment and interact with staff adequately. Patient noted to be future oriented with plans to continue treatment for continuity of care and engage in rehabilitation program for substance use. Counselor has arranged discharge plan in coordination with patient's family which patient will be discharged to father's care and be taken by the father to the substance rehabilitation program thereafter. On the day of discharge: Patient seen and examined; chart reviewed. Case discussed with nurse and counselor. No behavioral issues overnight. On my examination today, the patient denies any suicidal homicidal ideation, intent or plan on direct questioning and contracts for safety. Patient denies any perceptional disturbances and no delusional material verbalized today. Patient denies any side effects from medication and has understanding of medication regimen and education. No physical complaints. Suicide and violence risk assessment on day of discharge both suggest lower imminent risk, and the patient's level of function is adequate for plan level of outpatient care. Patient has maximized benefit from this inpatient psychiatric hospital stay and will be discharged with discharge plan as arranged by counselor. Patient advised to return to psychiatric emergency room for any concerning psychiatric symptoms. Patient agrees with plan. - Discharge Discharge Date: 05/16/18 - Discharge Diagnosis (1) Adjustment disorder with depressed mood Code(s): F43.21 - Adjustment disorder with depressed mood Status: Acute (2) Alcohol abuse Code(s): F10.10 - Alcohol abuse, uncomplicated Status: Acute (3) Cannabis abuse Code(s): F12.10 - Cannabis abuse, uncomplicated Status: Acute Discharge Disposition: Home - Discharge Instructions Discharge Diet: Heart Healthy Diet Activities You Can Perform: Regular- No Restrictions - Discharge Time > 30 minutes Mental Status Examination Appearance: Appropriate Consciousness: Alert Orientation: x4 Motor Activity: Normal gait Speech: Unremarkable Language: Adequate Fund of Knowledge: Inadequate Attention and Concentration: Adequate Memory: Unremarkable Mood: Anxious Affect: Blunt Thought Process & Associations: Intact, Goal directed Thought Content: Appropriate Hallucination Type: None Delusion Type: None Suicidal Ideation: No Suicidal Plan: No Suicidal Intention: No Homicidal Ideation: No Homicidal Plan: No Homicidal Intention: No Insight: Fair Judgment: Adequate Discharge/Advance Care Plan - Results Vital Signs: Last Vital Signs Temp 98.1 F 05/16/18 05:25 Pulse 70 05/16/18 05:25 Resp 16 05/16/18 05:25 BP 112/70 05/16/18 05:25 Pulse Ox 99 05/16/18 05:25 Lab Results: Laboratory Results Hemoglobin A1c 5.2 % (4.3-6.0) 05/08/18 14:20 Triglycerides 437 mg/dL (42-150) H 05/08/18 14:20 Cholesterol 229 mg/dL (120-200) H 05/08/18 14:20 LDL Cholesterol, Calc mg/dL (0-99) 05/08/18 14:20 HDL Cholesterol 41.7 mg/dL (40.0-60.0) 05/08/18 14:20 TSH 0.917 uIU/mL (0.358-3.740) 05/07/18 10:22 Urine Culture Comments Culture not ind 05/07/18 10:28 Summary of Procedures: none Imaging: ITS Impressions Head CT 05/09/18 00:00 CONCLUSION: 1. No acute intracranial abnormality. . Pending Results: None - Medications Number of antipsychotic medications at discharge: 0 - Discharge Care Plan Goals to Promote Your Health: * To prevent worsening of your condition and complications * To maintain your health at the optimal level Directions to Meet Your Goals: Take your medications as prescribed Follow your dietary instruction Follow activity as directed Keep your appointments as scheduled Take your immunizations and boosters as scheduled If your symptoms worsen call your PCP, if no PCP go to Urgent Care Center or Emergency Room For 12/02 questions related to your inpatient stay or results of tests pending at discharge, please contact Dr. Tony Fernandez MD at Smoking is Dangerous to Your Health. Avoid second hand smoking
== END 2018-05-16 10:00 ==
LOC: NEPD 09:45 → NEDA 05-08 10:31 → H260 05-08 10:48
PROVIDERS: ADMIT Student in an Organized Health Care Education/Training Program; ATTEND Student in an Organized Health Care Education/Training Program